=== PATIENT | female | born 2000 | race Caucasian/White ===

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

== ENCOUNTER 2021-05-08 18:27 | Emergency (ER) | payer OTHER, MEDICAID ==
[~2021-05-08] VITALS: Ht 162.6 cm; Wt 52.2 kg
[~2021-05-08 18:27] MED LIST changes: +IRON325 PO; +VITAFOL-OB+DHA1 EACH PO
[2021-05-08] MEDS ORDERED: TROKENDI XR50 MG PO (18:39)
[2021-05-08 19:39] VITALS: BP 122/73
[2021-05-08] MEDS ORDERED: BUTALB-APAP-CA1 EACH PO (21:38)
[2021-05-08] MEDS ORDERED: IBUPROFEN 600600 M1 PO (21:38)
== END 2021-05-08 20:27 | disposition home or self-care (01) ==
LOC: M.ERS 18:27
DX: R51.9 Headache, unspecified (principal); Z79.899 Other long term (current) drug therapy